=== PATIENT | female | born 1995 | race Caucasian/White ===

== ENCOUNTER 2021-06-03 19:47 | Emergency (ER) | payer BC ==
--- NOTE | 2021-06-03 20:09 | EDM.PDOC ---
ED HPI GENERAL MEDICAL PROBLEM - General Chief Complaint: Lower Extremity Injury/Pain Stated Complaint: LT FOOT INJURY Time Seen by Provider: 06/03/21 22:00 Source of Information: Reports: Patient History Limitations: Reports: No Limitations - History of Present Illness INITIAL COMMENTS - FREE TEXT/NARRATIVE: 26 year old female presenting with left foot injury. The patient reports that she stepped out of a truck and into a pothole with her left foot and ended up twisting her foot. She immediately had pain and had difficulty bearing weight on the left. The pain is localized on the medial aspect of the left foot. The pain radiates up into her ankle and lower leg. She denies any numbness, tingling, or weakness. She does note a history of bone cancer in the same leg, she had surgery and a bone graft in 2017. She has not take anything for pain. - Related Data Allergies Allergy/AdvReac Type Severity Reaction Status Date / Time No Known Allergies Allergy Verified 06/03/21 21:51 Home Meds: Home Meds NK [No Known Home Meds] 06/03/21 [History] Past Medical History Oncologic (Cancer) History: Reports: Bone Social & Family History - Family History Family Medical History: No Pertinent Family History Review of Systems - Review of Systems Review Of Systems: Comprehensive ROS is negative, except as noted in HPI. ED EXAM, GENERAL - Physical Exam Exam: See Below Exam Limited By: No Limitations General Appearance: Alert, No Apparent Distress Head: Atraumatic, Normocephalic Respiratory/Chest: No Respiratory Distress, No Accessory Muscle Use Extremities: Normal Inspection, Normal Range of Motion, Other (Left foot with tenderness over the medial aspect of the foot without significant swelling, ecchymosis, or deformity. Left ankle is non-tender with normal ROM.). No: Pedal Edema Neurological: Alert, Oriented, Normal Cognition Psychiatric: Normal Affect, Normal Mood Skin Exam: Warm Course - Vital Signs Last Recorded V/S: Last Vital Signs Temp 98.1 F 06/03/21 21:54 Pulse 94 06/03/21 21:54 Resp 16 06/03/21 21:54 BP 136/79 06/03/21 21:54 Pulse Ox 99 06/03/21 21:54 - Orders/Labs/Meds Orders: Active Orders 24 hr Category Date Time Status Foot Comp Min 3V Lt [CR] Stat Exams 06/03/21 21:58 Taken Departure - Departure Time of Disposition: 22:20 Disposition: Home, Self-Care 01 Condition: Good Clinical Impression: Sprain of foot, left - Discharge Information Instructions: Foot Sprain Referrals: PCP,None [Primary Care Provider] - Forms: ED Department Discharge Additional Instructions: Rest, ice, and elevate the foot over the next few days. Use the guevara wrap and crutches as needed. Use tylenol and/or ibuprofen for pain. Rarely initial x-rays can miss fractures so if you are still having quite a bit of pain after one week you should follow up for repeat x-rays. Sepsis Event Note (ED) - Focused Exam Vital Signs: Vital Signs Temp Pulse Resp BP Pulse Ox 06/03/21 21:54 98.1 F 94 16 136/79 99 06/03/21 21:50 98.1 F 94 16 136/79 99 - Problem List Review Problem List Initiated/Reviewed/Updated: Yes - My Orders Last 24 Hours: My Active Orders 06/03/21 21:58 Foot Comp Min 3V Lt [CR] Stat - Assessment/Plan Last 24 Hours: My Active Orders 06/03/21 21:58 Foot Comp Min 3V Lt [CR] Stat Assessment:: 26 year old female presenting with left foot pain. differential diagnosis includes fracture, sprain, contusion. X-ray did not reveal any evidence of fracture or dislocation on my preliminary review of images, but final radiology report was pending. She is neurovascularly intact and there is no evidence of compartment syndrome at this time. Recommended rest, ice, elevation. Ibuprofen and/or tylenol for pain. She can follow up with primary care if symptoms are not improving. We discussed that rarely fracture can be missed on initial imaging and that if symptoms persist, repeat imaging may be indicated in 1 week.
--- NOTE | 2021-06-06 08:54 | CR ---
Foot Comp Min 3V Lt CLINICAL HISTORY: Midfoot pain, injury FINDINGS: There is no acute fracture or dislocation within the foot. No destructive changes are present. IMPRESSION: No acute bony process.
== END 2021-06-03 22:59 | disposition home or self-care (01) ==
LOC: JP.ED 19:47
DX: S93.602A Unspecified sprain of left foot, initial encounter (principal); X50.1XXA Overexertion from prolonged static or awkward postures, initial encounter
CPT/HCPCS: 73630-26-LT; 73630-LT; 99283-25